=== PATIENT | female | born 1955 | race Native Hawaiian/Other Pacific Islander ===

== ENCOUNTER 2017-04-10 07:01 | Day surgery (SDC) | payer MEDICARE, OTHER ==
[2014-11-14 17:27] VITALS: BMI 23.8
[2017-04-10] MEDS ORDERED: Propofol 10 mg/ml Inj (20 ML) ONE (08:34)
[2017-04-10] MEDS ORDERED: Lactated Ringer's 1,000 ML IV SCH (08:52)
[2017-04-10 09:47] VITALS: BP 133/85; PULSE 83; RESP 16; TEMP 98.2; O2SAT 96
== END 2017-04-10 10:04 | disposition home or self-care (01) ==
LOC: ENDO 07:01
PROVIDERS: ATTEND Specialist
DX: K31.7 Polyp of stomach and duodenum (principal); K29.50 Unspecified chronic gastritis without bleeding; B96.81 Helicobacter pylori [H. pylori] as the cause of diseases classified elsewhere; E11.43 Type 2 diabetes mellitus with diabetic autonomic (poly)neuropathy; K44.9 Diaphragmatic hernia without obstruction or gangrene; K31.84 Gastroparesis; Z79.84 Long term (current) use of oral hypoglycemic drugs
CPT/HCPCS: 43239; 82948; 88305; 88342; J2704; J7040; J7120

== ENCOUNTER 2019-03-03 12:26 | Outpatient (CLI) | payer MEDICARE, OTHER | END 2019-03-03 12:27 | disposition home or self-care (01) | LOC: RAD 12:26 ==